=== PATIENT | male | born 1980 | race Caucasian/White ===

== ENCOUNTER → 2019-05-13 | Outpatient (CLI) | payer BC | LOC: GMAE 12:31 | PROVIDERS: ATTEND Family Medicine | DX: R06.02 Shortness of breath (principal) ==

== ENCOUNTER 2019-10-19 14:57 | Observation (INO) | payer BC ==
[2019-10-19] MEDS ORDERED: ASPIRIN (CHEWABLE) 81 MG TAB PO ONE (15:15)
[2019-10-19] MEDS ORDERED: SODIUM CHLORIDE 0.9% (FLUSH) 10 ML SYG IV PRN ×2 (15:15→19:23)
--- NOTE | 2019-10-19 15:22 | ED.PDOC ---
History of Present Illness - General Chief Complaint: Chest Pain/NV Stated Complaint: Chest pain Time Seen by Provider: 10/19/19 15:14 - History of Present Illness Initial Comments: 39 yo M with hx of diabetes and hiatal hernia with chest pain on set today. The patient reports symptoms started at rest. He describes a pressure discomfort to his epigastrium that radiates through his left chest into his left arm. No clear exacerbating or relieving factors. The patient denies past cardiac hx, but was told in the past that he had a "heart attack due to his hiatal hernia." Father reportedly passed from NV in his 50s. No recent illness. No other reported issues. Allergies/Adverse Reactions: Allergies NO KNOWN ALLERGY Allergy (Verified 10/19/19 15:20) Home Medications: Ambulatory Orders Mirtazapine 30 mg PO BEDTIME 06/01/14 Clonazepam 0.5 mg PO BEDTIME #30 tab 06/02/14 Esomeprazole Magnesium [Nexium] 40 mg PO BID #60 cap 06/02/14 Isosorbide Mononitrate [Imdur] 60 mg PO QAM #30 tab 06/02/14 Nitroglycerin 0.4 mg Tab [Nitrostat] 1 ea SL Q5MIN PRN #15 bttl 06/02/14 Sucralfate Suspension [Carafate Suspension] 1 gm PO QID #1 bottle 06/02/14 raNITIdine HCL [Zantac] 150 mg PO BID #60 tab 06/02/14 Review of Systems - Review of Systems Constitutional: States: other - Sweating. Denies: chills, fever EENTM: Denies: blurred vision, ear pain Respiratory: States: short of breath. Denies: cough Cardiology: States: chest pain. Denies: edema, palpitations Gastrointestinal/Abdominal: States: nausea. Denies: abdominal pain, diarrhea, vomiting Musculoskeletal: Denies: muscle pain, neck pain Skin: Denies: change in color, rash Neurological: Denies: headache, numbness, weakness Endocrine: States: no symptoms reported Hematologic/Lymphatic: States: no symptoms reported Past Medical History (General) - Patient Medical History Hx Seizures: No Hx Stroke: No Hx Dementia: No Hx Asthma: No Hx of COPD: No Hx Cardiac Disorders: Yes Hx Congestive Heart Failure: Yes Hx Pacemaker: No Hx Hypertension: Yes Hx Thyroid Disease: No Hx Diabetes: No Hx Gastroesophageal Reflux: Yes Hx Renal Disease: No Hx Cancer: No Hx of HIV: No Hx Hepatitis C: No Hx MRSA: No - Vaccination History Hx Tetanus, Diphtheria Vaccination: No Hx Influenza Vaccination: Yes Hx Pneumococcal Vaccination: No - Social History Hx Tobacco Use: No Hx Chewing Tobacco Use: No Hx Alcohol Use: No Hx Substance Use: Yes - pot Hx Depression: Yes Hx Physical Abuse: No Hx Emotional Abuse: No Hx Suspected Abuse: No - Female History Patient : No Family Medical History - Family History Mother Hx Family Diabetes: Yes Hx Family Cancer: Yes - breast, lung Grandparents Living Status: Hx Family Congestive Heart Failure: Yes Physical Exam - Physical Exam General Appearance: Alert, Other - Diaphoretic, mild distress. Eyes, Ears, Nose, Throat Exam: TMs normal, pharynx normal Neck: non-tender, full range of motion, supple Respiratory: chest non-tender, lungs clear, normal breath sounds, no respiratory distress Cardiovascular/Chest: normal peripheral pulses, regular rate, rhythm, no edema Gastrointestinal/Abdominal: normal bowel sounds, non tender, soft Extremity: normal range of motion, non-tender Neurologic: no motor/sensory deficits, alert, normal mood/affect, oriented x 3 Skin Exam: normal color, warm/dry Progress - Progress Progress: DDX: ACS, PE, gastrointestinal problem, complication of diabetes, msk pain, arrhythmia, infection. 10/19/19 18:03 Pt with new chest pain in the context of multiple risk factors for CAD. Discussed case with Delmis Valenzuela who accepts the patient for admission. 10/19/19 18:44 Dave Hurt, #[id number] - Results/Orders Results/Orders: 3:05 PM: Sinus 109. Nl axis, IRBBB otherwise nl intervals. No definitive ST segment changes. 10/19/19 15:15 IV Care:Saline Lock per Protoc QSHIFT Telemetry ONCE Sodium Chloride 0.9% (Flush) [Saline Flush Syringe] 3 ml IV PRN PRN EKG STAT 10/19/19 17:54 ED Intent to Admit Routine 10/20/19 09:00 Pulse Ox Daily 10/20/19 15:15 EKG STAT Laboratory Results - last 24 hr 10/19/19 10/19/19 10/19/19 15:15 15:15 16:02 WBC 8.8 RBC 5.26 Hgb 16.2 Hct 48.5 MCV 92.3 MCH 30.7 MCHC 33.3 RDW 14.5 Plt Count 209 MPV 10.4 Absolute Neuts (auto) 4.00 Absolute Lymphs (auto) 3.60 H Absolute Monos (auto) 0.60 Absolute Eos (auto) 0.50 H Absolute Basos (auto) 0.10 Neutrophils % 45.2 Lymphocytes % 40.7 Monocytes % 7.1 Eosinophils % 5.9 H Basophils % 1.1 PT 9.8 INR 0.98 PTT (SP) 25.1 D-Dimer, Quantitative 0.31 Sodium 136 Potassium 3.4 L Chloride 96 L Carbon Dioxide 25 Anion Gap 18.4 H BUN 15 Creatinine 0.88 BUN/Creatinine Ratio 17.0 Random Glucose 311 H Serum Osmolality 284.6 Calcium 8.5 Magnesium 2.1 Creatine Kinase 190 H CK-MB (CK-2) 2.4 CK-MB (CK-2) % Not Reportable Troponin I < 0.02 Serum Ketones Negative 10/19/19 17:09 WBC RBC Hgb Hct MCV MCH MCHC RDW Plt Count MPV Absolute Neuts (auto) Absolute Lymphs (auto) Absolute Monos (auto) Absolute Eos (auto) Absolute Basos (auto) Neutrophils % Lymphocytes % Monocytes % Eosinophils % Basophils % PT INR PTT (SP) D-Dimer, Quantitative Sodium Potassium Chloride Carbon Dioxide Anion Gap BUN Creatinine BUN/Creatinine Ratio Random Glucose Serum Osmolality Calcium Magnesium Creatine Kinase CK-MB (CK-2) CK-MB (CK-2) % Troponin I < 0.02 Serum Ketones - EKG/XRAY/CT XRAY: chest - Unremarkable. See formal read. Departure - Departure Clinical Impression: Chest pain with moderate risk for cardiac etiology, Hyperglycemia Time of Disposition: 17:55 Disposition: Admit Patient Home Medications: Ambulatory Orders Mirtazapine 30 mg PO BEDTIME 06/01/14 Clonazepam 0.5 mg PO BEDTIME #30 tab 06/02/14 Esomeprazole Magnesium [Nexium] 40 mg PO BID #60 cap 06/02/14 Isosorbide Mononitrate [Imdur] 60 mg PO QAM #30 tab 06/02/14 Nitroglycerin 0.4 mg Tab [Nitrostat] 1 ea SL Q5MIN PRN #15 bttl 06/02/14 Sucralfate Suspension [Carafate Suspension] 1 gm PO QID #1 bottle 06/02/14 raNITIdine HCL [Zantac] 150 mg PO BID #60 tab 06/02/14 Decision To Admit - Decistion To Admit Decision to Admit Reason: Admit from ER Decision to Admit Date: 10/19/19 Decision to Admit Time: 17:53
--- NOTE | 2019-10-19 15:39 | RAD ---
EXAM DESCRIPTION: Chest,1 View CLINICAL HISTORY: 39 years Male chest pain COMPARISON: None. FINDINGS: The cardiomediastinal silhouette appears unremarkable. No consolidating infiltrates or pleural effusions. No pneumothorax. IMPRESSION: No acute abnormality is identified. Electronically signed by: Brett Lombardi MD 10/19/2019 3:37 PM PBX OPERATOR
--- NOTE | 2019-10-19 18:46 | HP ---
SUPERVISING PHYSICIAN: Jose Antonio Fernández MD CHIEF COMPLAINT: Chest pain. HISTORY OF PRESENT ILLNESS: This is a 39-year-old male patient who works nights at [employer]. He actually came home and went to sleep from working. He was quite asleep and woke up with chest pressure. It was constant. There was nothing that relieved it. It actually started worsening to the point that he became diaphoretic with some nausea and vomiting. His face was flushed. His said his heart rate was in the 120s and he felt a fluttery sensation. At one point, his blood pressure was 100/58 and shortly thereafter, it was 158/81. She had a hard time getting him to come to the Emergency Room. At some point, she finally got him in the car and brought him to the Emergency Room. He said he was diagnosed with a heart attack when he was 18 years old, but at the same time, he also had an esophageal hernia repair during that hospitalization, so I am not quire sure if he actually had a myocardial infarction at that time. He has recently started going to Dr. Salamanca. He also has a significant family history of heart problems. His dad actually in his 50s from a myocardial infarction. His initial vital signs in the Emergency Room showed a temperature of 98.5, heart rate 108, blood pressure 160/85, respiratory rate 22, O2 saturation 89%. Laboratory studies were done. CBC was within normal limits. D-dimer was negative at 0.31. Chemistries showed sodium 136, potassium 3.4, chloride 96, carbon dioxide 25, anion gap 18.4, BUN 15, creatinine 0.88, glucose 311. Creatinine kinase 190. Initial troponin was 0.02 and 2 hour followup troponin was 0.02. There were no EKG changes noted on his 12-lead. Chest x-ray showed no acute abnormalities. Due to his extensive family history as well as he is a smoker, I was called to place the patient in observation for chest pain. PAST MEDICAL HISTORY: 1. Depression. 2. Diabetes mellitus, type 2. 3. Gastroesophageal reflux disease. 4. Sleep apnea although he has not had a sleep study as yet. 5. Insomnia. PAST SURGICAL HISTORY: 1. Right knee scope. 2. Laparoscopic fundoplication at age 18 to repair a hernia that was causing chest pain at that time. MEDICATIONS: Per the EMR and awaiting verification. ALLERGIES: NO KNOWN DRUG ALLERGIES. FAMILY HISTORY: Positive for stroke, diabetes, cancer, hypertension, myocardial infarction. His actually in his 50s from a myocardial infarction. SOCIAL HISTORY: The patient lives in [place] with his and 4 children. He works at [employer]. He smokes about one pack of cigarettes daily and has for over 20 years. He also drinks 5 to 6 times per week and drinks approximately 8 to 10 beers when he does drink. He denies any illicit drug use. REVIEW OF SYSTEMS: GENERAL: Negative for fever, fatigue or weight changes. HEENT: Negative for sinus symptoms, ear pain, vision changes or sore throat. RESPIRATORY: Positive for shortness of breath. Negative for wheezing, coughing. CARDIAC: As per history of present illness. GASTROINTESTINAL: Positive for nausea. Negative for vomiting, diarrhea, constipation or abdominal pain. MUSCULOSKELETAL: Negative for arthralgias, myalgias. SKIN: Negative for lesions or rashes. NEUROLOGIC: Positive for left arm numbness. Negative for headache or seizures. PHYSICAL EXAMINATION: VITAL SIGNS: Temperature 98.5. Heart rate 86. Blood pressure 137/88. Respiratory rate 18. O2 saturation 96% on 2 liters nasal cannula. GENERAL: This is a 39-year-old obese male sitting on the side of his bed on his hospital room. He is in no acute distress. HEENT: Normocephalic, atraumatic. Pupils are equal and reactive. Oropharynx is clear. NECK: Supple without mass. There is no discernible jugular venous distention. RESPIRATORY: Essentially clear to auscultation bilaterally. CHEST: There is equal rise and fall of the chest with inspiration and expiration. CARDIOVASCULAR: Regular rate and rhythm. GASTROINTESTINAL: Abdomen is soft, nondistended, nontender. Bowel sounds are positive. EXTREMITIES: No cyanosis, clubbing or edema. NEUROLOGIC: Awake, alert and oriented times three. Cranial nerves II-XII are grossly intact as tested. LABORATORY: Labs and films are as per history of present illness. IMPRESSION: 1. Chest pain, rule out acute coronary syndrome. 2. Hypertension. 3. Sleep apnea. 4. Tobacco abuse with about a 24 pack year history. 5. Alcohol abuse. 6. Diabetes mellitus, type 2. 7. Gastroesophageal reflux disease. 8. Depression. PLAN: The patient has been placed in observation. Chest pain guidelines have been initiated. We will get an echocardiogram and he will be on Lovenox for DVT prophylaxis. He will need a complete cardiac workup given his family history. I have encouraged him to stop smoking and we discussed smoking cessation. He will have Protonix for ulcer prophylaxis. His home medications will be restarted as soon as they are verified. We will continue to monitor the patient closely and follow as needed. #[id number] MTDD
[2019-10-19] MEDS ORDERED: ACETAMINOPHEN 325 MG TAB PO PRN (19:23)
[2019-10-19] MEDS ORDERED: MORPHINE SULFATE INJ 10 MG/ML VIAL IV PRN (19:23)
[2019-10-19] MEDS ORDERED: NITROGLYCERIN 0.4 MG 25 EA TAB SL PRN (19:23)
[2019-10-19] MEDS ORDERED: IV SET AND CAP CHANGE INJ INJ SCH (19:30)
[2019-10-19] MEDS ORDERED: GLUCAGON INJ 1 MG VIAL SUBCU PRN (20:22)
[2019-10-19] MEDS ORDERED: DEXTROSE 50% 25 GM/50 ML SYG IV PRN (20:22)
[2019-10-19] MEDS ORDERED: CITALOPRAM HBR 20 MG TAB ONE (20:50)
[2019-10-19] MEDS ORDERED: FUROSEMIDE 40 MG TAB ONE (20:51)
[2019-10-19] MEDS ORDERED: PANTOPRAZOLE SODIUM IV 40 MG VIAL ONE (20:52)
[2019-10-19] MEDS ORDERED: NON-FORMULARY MEDICATION 1 EA MIS (Furosemide [Lasix] 20 MG) PO SCH (21:00)
[2019-10-19] MEDS ORDERED: NON-FORMULARY MEDICATION 1 EA MIS (Citalopram Hydrobromide [Citalopram] 40 MG) PO SCH (21:00)
[2019-10-19] MEDS ORDERED: ENOXAPARIN SODIUM 40 MG/0.4 ML SYG SUBCU SCH (21:00)
[2019-10-19] MEDS ORDERED: NICOTINE PATCH 14 MG TD ONE (21:28)
[2019-10-19] MEDS: INSULIN LISPRO 100 UNITS/ML PEN SUBCU SCH (22:07)
[2019-10-19] MEDS: SODIUM CHLORIDE 0.9% (FLUSH) 10 ML SYG IV SCH (22:08)
[2019-10-19] MEDS: NICOTINE PATCH 14 MG TD SCH (22:45)
[2019-10-20] MEDS ORDERED: hydroCHLOROthiazide 25 MG TAB PO SCH (03:00)
[2019-10-20] MEDS ORDERED: PANTOPRAZOLE SODIUM IV 40 MG VIAL IV SCH (06:30)
[2019-10-20] MEDS: INSULIN LISPRO 100 UNITS/ML PEN SUBCU SCH ×2 (07:20→12:53)
[2019-10-20] MEDS: NICOTINE PATCH 14 MG TD SCH (08:19)
[2019-10-20] MEDS: SODIUM CHLORIDE 0.9% (FLUSH) 10 ML SYG IV SCH (08:19)
[2019-10-20] MEDS ORDERED: ASPIRIN TABLET 325 MG TAB PO SCH (09:00)
[2019-10-20 10:22] VITALS: BP 150/92; TEMP 99; O2SAT 96
--- NOTE | 2019-10-20 14:17 | DS ---
SUPERVISING PHYSICIAN: Jose Antonio Fernández MD DISCHARGE DIAGNOSIS: 1. Chest pain, acute coronary syndrome ruled out with negative troponins and no changes per EKG. 2. Hypertension. 3. Sleep apnea, but has not had a sleep study. 4. Tobacco abuse with about a 24 pack year history. 5. Alcohol abuse. 6. Diabetes mellitus, type 2, with hemoglobin A1c of 7.2. 7. Gastroesophageal reflux disease. 8. Depression. HISTORY OF PRESENT ILLNESS: This is a 39-year-old male patient who works nights at [employer]. He came home on the day of admission and was trying to sleep. He was not quite asleep and woke up with chest pressure. It was constant. There was nothing that relieved it. It actually started worsening to the point that he became diaphoretic with some nausea and vomiting. His face was flushed. His said his heart rate was in the 120s and he felt a fluttery sensation. At one point, his blood pressure was 100/58 and shortly thereafter, it was 158/81. She had a hard time getting him to come to the Emergency Room. At some point, she finally got him in the car and brought him to the Emergency Room. He said he was diagnosed with a heart attack when he was 18 years old, but at the same time, he also had an esophageal hernia repair during that hospitalization, so I am not quire sure if he actually had a myocardial infarction at that time. He has recently started going to Dr. Salamanca. He also has a significant family history of heart problems. His dad actually in his 50s from a myocardial infarction. His initial vital signs in the Emergency Room showed a temperature of 98.5, heart rate 108, blood pressure 160/85, respiratory rate 22, O2 saturation 89%. Laboratory studies were done. CBC was within normal limits. D-dimer was negative at 0.31. Chemistries showed sodium 136, potassium 3.4, chloride 96, carbon dioxide 25, anion gap 18.4, BUN 15, creatinine 0.88, glucose 311. Creatinine kinase 190. Initial troponin was 0.02 and 2 hour followup troponin was 0.02. There were no EKG changes noted on his 12-lead and showed normal sinus rhythm. Chest x-ray showed no acute abnormalities. Due to his extensive family history as well as he is a smoker, I was called to place the patient in observation for chest pain. HOSPITAL COURSE: The patient had no further complaints of chest pain. The chest pain guidelines were initiated. All of his EKGs were unchanged and his troponins were negative. He was on Lovenox for DVT prophylaxis. We discussed smoking cessation as well as reducing alcohol intake. He had Protonix for ulcer prophylaxis. His home medications were restarted. Since he has been chest pain free with negative troponins and no changes on EKG, he will be discharged home today in stable condition. LABORATORY: CBC today was within normal limits. Blood sugars have run between 127 and 311. Electrolytes were basically within normal limits with the exception of chloride slightly low at 98. He had a hemoglobin A1c of 7.2. AST is 55, ALT 81. He had a fasting lipid panel done this morning and his triglycerides are 451 with a total cholesterol of 215. HDL cholesterol was 33 and LDL was 128. Serum ketones were negative. RADIOLOGY: Chest x-ray showed no acute abnormalities. DISCHARGE PLAN: The patient will be discharged home in stable condition. He is to resume his diabetic diet and increase his activity as tolerated. He has a followup appointment with Dr. Salamanca on 11/01/19 at 9:30 AM. He has also been scheduled for an echocardiogram at [facility] on 10/25/19 at 12:30. He will also have a nuclear stress test at [facility] on 10/28/19, and it is at 10 AM. In addition to his routine home medications, I have also started him on Lipitor. He will also need to resume his metformin 500 mg b.i.d. I have also given him a prescription for nitroglycerin as well as he will need to continue with his nicotine patches and to stop smoking. I have also started him on 325 mg aspirin daily. It probably would be beneficial for him to see a human factors specialist at some point. He is to return to the hospital or followup with Dr. Salamanca for any problems or complications. DISCHARGE MEDICATIONS: 1. Citalopram. 2. Hydrochlorothiazide.. 3. Ranitidine. 4. Aspirin 325 mg. 5. Atorvastatin 20 mg. 6. Metformin 500 mg b.i.d. 7. Nicotine patch 14 mg patch daily. 8. Nitroglycerin 0.4 mg p.r.n. chest pain. #[id number] [facility]
[2019-10-20] MEDS ORDERED: CITALOPRAM HBR 20 MG TAB PO SCH (21:00)
[2019-10-20] MEDS ORDERED: ATORVASTATIN 20 MG TAB PO SCH (21:00)
== END 2019-10-20 13:30 | disposition home or self-care (01) ==
LOC: ER 14:57 → MS 18:45
PROVIDERS: ADMIT Nurse Practitioner Acute Care; ATTEND Nurse Practitioner Acute Care
DX: R07.89 Other chest pain (principal); I11.0 Hypertensive heart disease with heart failure; G47.30 Sleep apnea, unspecified; F17.210 Nicotine dependence, cigarettes, uncomplicated; F10.10 Alcohol abuse, uncomplicated; E11.65 Type 2 diabetes mellitus with hyperglycemia; K21.9 Gastro-esophageal reflux disease without esophagitis; F32.9 Major depressive disorder, single episode, unspecified; R11.2 Nausea with vomiting, unspecified; G47.00 Insomnia, unspecified; R00.0 Tachycardia, unspecified; I45.10 Unspecified right bundle-branch block; I50.9 Heart failure, unspecified; Y90.9 Presence of alcohol in blood, level not specified; Z79.84 Long term (current) use of oral hypoglycemic drugs; Z79.82 Long term (current) use of aspirin; Z79.899 Other long term (current) drug therapy; Z82.49 Family history of ischemic heart disease and other diseases of the circulatory system; Z82.3 Family history of stroke; Z83.3 Family history of diabetes mellitus; Z80.3 Family history of malignant neoplasm of breast; Z80.1 Family history of malignant neoplasm of trachea, bronchus and lung
CPT/HCPCS: 96374; 96372; J1650; 85379; 82009; 82553 ×3; 80053; 82948 ×3; 83036; 80061; 36415 ×2; 82550 ×3; 80048; 85025 ×2; 85730; 85610; 84484 ×4; 36416 ×2; 71045; 99406; 99285; 93005 ×3; G0378

== ENCOUNTER → 2019-11-11 | Outpatient (CLI) | payer BC ==
--- NOTE | 2019-11-11 11:50 | CT ---
EXAM DESCRIPTION: CTA Chest CLINICAL HISTORY: chest pain COMPARISON: July 31, 2013 TECHNIQUE: Postcontrast CT images of the chest are obtained using pulmonary embolism imaging protocol. Three-D MIP reconstructed images of the arterial vasculature are obtained. Coronal and sagittal reconstructed images of the also provided. Noncontrast CT images of the chest are also performed. This exam was performed according to our departmental dose-optimization program, which includes automated exposure control, adjustment of the mA and/or kV according to patient size and/or use of iterative reconstruction technique . FINDINGS: Images are mildly degraded by patient breathing motion artifact and body habitus. The heart is enlarged. Coronary arteries unremarkable. Thoracic aorta shows no aneurysmal dilatation or dissection. No definite filling defects or emboli are seen in the pulmonary arteries. Hypertrophic bridging marginal endplate osteophytes over multiple levels in the mid to lower thoracic spine are seen. Large anterior osteophytes at the sternomanubrial junction extending 12 mm beyond the cortex anteriorly. Lungs are normally aerated without acute appearing infiltrate or consolidation. No worrisome pulmonary nodules. No pathologically enlarged mediastinal, hilar, or axillary lymphadenopathy is seen. Visualized portion of the upper abdomen shows enlarged liver measuring 20.1 cm with heterogeneous decreased attenuation. IMPRESSION: No CT evidence of pulmonary embolism. Cardiomegaly. Hepatomegaly with diffuse fatty infiltration of the liver seen. Spondylitic changes in the spine are seen with findings suggesting diffuse idiopathic skeletal hyperostosis. Electronically signed by: Wilner Muñiz MD 11/11/2019 11:48 AM COSTUME DESIGNER
== END ==
LOC: CT 10:31
PROVIDERS: ATTEND Internal Medicine Cardiovascular Disease
DX: R07.9 Chest pain, unspecified (principal); I51.7 Cardiomegaly; K76.0 Fatty (change of) liver, not elsewhere classified; M47.9 Spondylosis, unspecified

== ENCOUNTER → 2020-03-07 | Outpatient (CLI) | payer BC | LOC: GMAE 11:47 | PROVIDERS: ATTEND Family Medicine | DX: Z00.01 Encounter for general adult medical examination with abnormal findings (principal) ==

== ENCOUNTER → 2020-07-09 | Outpatient (CLI) | payer BC | LOC: GMAE 16:45 | PROVIDERS: ATTEND Family Medicine | DX: R06.02 Shortness of breath (principal); R07.2 Precordial pain; R50.9 Fever, unspecified ==

== ENCOUNTER → 2020-07-12 | Outpatient (CLI) | payer BC ==
[~2020-07-12] MED LIST: IPRATROPIUM/ALBUTEROL 3 ML VIAL NEB ONE
== END ==
LOC: RESP 10:07
PROVIDERS: ATTEND Family Medicine
DX: R06.02 Shortness of breath (principal)
CPT/HCPCS: 94060; J7620